=== PATIENT | male | born 1960 | race Caucasian/White ===

== ENCOUNTER 2020-02-05 10:18 | Emergency (ER) | payer OTHER ==
[2020-02-05 10:28] VITALS: BP 143/81; PULSE 62; RESP 18; TEMP 98.4
[2020-02-05] MEDS ORDERED: DIPH,PERTUS(ACELL)TETVAC-LF 0.5 ML VIAL IM ONE (10:37)
[2020-02-05] MEDS ORDERED: LIDOCAINE 1% INJ 10MG/ML (20 ML MDV) SQ ONE (10:37)
--- NOTE | 2020-02-05 10:58 | ED ---
Wound/Laceration HPI - General Chief Complaint: Wound/Laceration Stated Complaint: IHS/left hand laceration Time Seen by Provider: 02/05/20 10:30 Source: patient Mode of arrival: ambulatory Limitations: no limitations - History of Present Illness Initial Comments: Patient is a 59-year-old male presenting to the emergency Department with complaints of a laceration and injury to his left hand. Patient states he was attempting to move a large box of siding when it smashed down onto his left hand, thumb area. Patient does have a laceration to the area along with pain. Patient does not report number his last tetanus vaccine. He denies being on blood thinners. Bleeding is controlled at this time with a bandage. He states he does have pain in his hand with motion. No pain in the left wrist. He has no other complaints at this time. Upon arrival to the ER, his vital signs are stable. - Related Data Previous Rx's Medication Instructions Recorded Naproxen [Naprosyn] 500 mg PO Q12HR #24 tab 11/28/15 Cephalexin [Keflex] 500 mg PO BID 5 Days #10 cap 02/05/20 Allergies Allergy/AdvReac Type Severity Reaction Status Date / Time No Known Allergies Allergy Verified 02/05/20 10:20 Review of Systems ROS Statement: Those systems with pertinent positive or pertinent negative responses have been documented in the HPI. ROS Other: All systems not noted in ROS Statement are negative. Past Medical History Past Medical History: No Reported History History of Any Multi-Drug Resistant Organisms: None Reported Past Surgical History: No Surgical Hx Reported Past Psychological History: No Psychological Hx Reported Smoking Status: Current some day smoker Past Alcohol Use History: Occasional Past Drug Use History: None Reported General Exam - General Exam Comments Initial Comments: GENERAL: Well-appearing, well-nourished and in no acute distress. HEAD: Atraumatic, normocephalic. EYES: Pupils equal round and reactive to light, extraocular movements intact, sclera anicteric, conjunctiva are normal. ENT: Moist mucous membranes. NECK: Normal range of motion, supple without lymphadenopathy or JVD. LUNGS: Breath sounds clear to auscultation bilaterally and equal. No wheezes rales or rhonchi. HEART: Regular rate and rhythm without murmurs, rubs or gallops. ABDOMEN: Soft, nontender, normoactive bowel sounds. No guarding, no rebound. No masses appreciated. : Deferred EXTREMITIES: Patient has pain with palpation along the left thumb, base of the thumb. He has pain with opposition. There is a large laceration in the same area. No pitting or edema. No clubbing or cyanosis. NEUROLOGICAL: Normal speech, normal gait. PSYCH: Normal mood, normal affect. SKIN: Warm, Dry, normal turgor. Patient has an approximate 6 cm laceration to the palmar aspect of the left thumb. Bleeding is controlled at this time. Limitations: no limitations Course Vital Signs 02/05/20 10:25 Temperature 98.4 F Pulse Rate 62 Respiratory 18 Rate Blood Pressure 143/81 O2 Sat by Pulse 95 Oximetry Procedures - Laceration Laceration #1 Consent Obtained: verbal consent Indication: laceration Site: hand (Left hand, into first digit.) Size (cm): 6 Description: linear Depth: simple, single layer Anesthetic Used: lidocaine 1% Anesthesia Technique: local infiltration Amount (mls): 4 Pre-repair: irrigated extensively Type of Sutures: nylon Size of Sutures: 4-0 Number of Sutures: 10 Technique: simple, interrupted Patient Tolerated Procedure: well Medical Decision Making - Medical Decision Making Patient is a 59-year-old male presenting with a 6 cm laceration to the palmar aspect of the left hand, near the base of the thumb. Bleeding is controlled. The tetanus vaccine was updated today. X-rays of the left hand reveal a possible acute nondisplaced transversely oriented fracture of the distal first phalanx. Patient's wound was cleaned with 1 L of sterile water. He is also started on Keflex for possible open fracture. Patient's wound was closed with 10, 40 sutures. Patient tolerated procedure well. Patient's wound was dressed and covered with a bandage. He will continue with Keflex as outpatient. He will follow up with orthopedics. He is in agreement with this plan of care. He is stable for discharge at this time. Return parameters were discussed with t melody patient he verbalizes understanding. Case discussed with Dr. Marie. Disposition Clinical Impression: Laceration of left hand, Fracture of distal phalanx of left thumb, Contusion of left hand Disposition: HOME SELF-CARE Condition: Stable Instructions (If sedation given, give patient instructions): Care For Your Stitches (ED) Additional Instructions: Please return to the Emergency Department if symptoms worsen or any other concerns. Stitches need to be removed and 7-10 days. Take antibiotics as prescribed. Follow-up with orthopedics as discussed. Prescriptions: Cephalexin [Keflex] 500 mg PO BID 5 Days #10 cap Is patient prescribed a controlled substance at d/c from ED?: No Referrals: Jasiel Martin MD [Primary Care Provider] - 1-2 days Dangelo Scott MD [STAFF PHYSICIAN] - 1-2 days
--- NOTE | 2020-02-05 11:06 | XR ---
EXAMINATION TYPE: XR hand complete LT DATE OF EXAM: 02/05/2020 CLINICAL HISTORY: Left hand laceration at the base of the thumb. Left hand pain. TECHNIQUE: Frontal, lateral and oblique images of the left hand are obtained. COMPARISON: None. FINDINGS: Transversely oriented lucency through the distal diaphysis of the first distal phalanx may relate to a nondisplaced acute fracture however this could relate to external lucency of the nailbed as the patient does not describe pain and trauma dislocation. Soft tissue laceration is seen at the l ateral aspect of the distal first metacarpal without radiopaque foreign body.. Old fracture deformity is seen of the distal ulna and ulnar styloid process. The joint spaces in the left hand appear withi n normal limits. The overlying soft tissue appears unremarkable. IMPRESSION: 1. Soft tissue laceration of the left hand lateral to the first metacarpal without radiopaque foreign body. 2. Lucency through the distal first phalanx could relate to acute nondisplaced transversely oriented fracture or external lucency the nailbed as the patient does not describe injury or pain in this loca tion. Correlate with point tenderness.
[2020-02-05] MEDS ORDERED: CEPHALEXIN 500 MG CAP PO STA (11:10)
== END 2020-02-05 12:30 | disposition home or self-care (01) ==
LOC: EC 10:18
DX: S62.522B Displaced fracture of distal phalanx of left thumb, initial encounter for open fracture (principal); F17.200 Nicotine dependence, unspecified, uncomplicated; Z23 Encounter for immunization; W23.1XXA Caught, crushed, jammed, or pinched between stationary objects, initial encounter; Y92.69 Other specified industrial and construction area as the place of occurrence of the external cause; Y99.0 Civilian activity done for income or pay
CPT/HCPCS: 73130; 90715; 99283; 12002; 90471; J2001

== ENCOUNTER → 2022-06-13 | Outpatient (CLI) | payer OTHER ==
--- NOTE | 2022-06-13 13:56 | US ---
EXAMINATION TYPE: US carotid duplex BILAT DATE OF EXAM: 06/13/2022 COMPARISON: NONE CLINICAL HISTORY: R42 DIZZINESS. Dizziness EXAM MEASUREMENTS: RIGHT: Peak Systolic Velocity (PSV) cm/sec ----- Right CCA: 157 ----- Right ICA: 108 ----- Right ECA: 141 ICA/CCA ratio: 0.69 RIGHT: End Diastole cm/sec ----- Right CCA: 42.0 ----- Right ICA: 29.5 ----- Right ECA: 11.0 LEFT: Peak Systolic Velocity (PSV) cm/sec ----- Left CCA: 126 ----- Left ICA: 123 ----- Left ECA: 141 ICA/CCA ratio: 0.98 LEFT: End Diastole cm/sec ----- Left CCA: 26.4 ----- Left ICA: 31.5 ----- Left ECA: 10.3 VERTEBRALS (direction of flow): Right Vertebral: Antegrade Left Vertebral: Antegrade Rhythm: Normal Mild plaque bilateral bifurcations. Generally increased velocities bilaterally. IMPRESSION: 1. There may be some mild narrowing, approaching 50%, in the left internal carotid artery. 2. There is some mild elevation approximately 50% bilateral external carotid arteries. Criteria for Assigning % of Stenosis / Diameter reduction (Estimation based on the indirect measurements of the internal carotid artery velocities (ICA PSV). 1. Normal (no stenosis)=ICA PSV < 125 cm/s: ratio < 2.0: ICA EDV<40 cm/s. 2. Less than 50% stenosis=ICA PSV < 125 cm/s: ratio < 2.0: ICA EDV<40 cm/s. 3. 50 to 69% stenosis=ICA PSV of 125 to 230 cm/s: ration 2.0 ? 4.0: ICA EDV 40-100 cm/s. 4. Greater than 70% stenosis to near occlusion= ICA PSV > 230 cm/s: ratio > 4.0: ICA EDV > 100 cm/s. 5. Near occlusion= ICA PSV velocities may be low or undetectable: variable ratio and ICA EDV. 6. Total occlusion=unable to detect flow.
== END | disposition home or self-care (01) ==
LOC: RADUSWWP 13:15
PROVIDERS: ATTEND Internal Medicine
DX: I65.23 Occlusion and stenosis of bilateral carotid arteries (principal)
CPT/HCPCS: 93880

== ENCOUNTER → 2022-06-20 | Outpatient (CLI) | payer OTHER ==
--- NOTE | 2022-06-20 08:20 | CT ---
EXAMINATION TYPE: CT brain wo con DATE OF EXAM: 06/20/2022 HISTORY: Dizziness CT DLP: 1072.30 mGycm. Automated Exposure Control for Dose Reduction was Utilized. TECHNIQUE: CT scan of the head is performed without contrast. COMPARISON: None. FINDINGS: There is no acute intracranial hemorrhage or midline shift identified. There is mild-to-m oderate diffuse ventricular and sulcal prominence consistent with diffuse age-related cerebral atroph y. Mcgill-white matter differentiation is maintained. There is 1.5 cm mucous retention cyst or polyp in the medial aspect left maxillary sinus. The globes are intact bilaterally. No suspicious opacificati on of mastoid air cells. IMPRESSION: No acute intracranial hemorrhage or midline shift. There is mild to moderate diffuse ag e-related cerebral atrophy noted.
--- NOTE | 2022-06-20 08:38 | CTL ---
EXAMINATION TYPE: CT Low Dose Lung DATE OF EXAM ORDERED: 06/20/2022 HISTORY: jail tobacco use. Lung cancer screening CT DLP: 89.[address] CTDI: 2.60 mGy Automated exposure control for dose reduction was used. SCREENING VISIT: Baseline COMPARISON: None. TECHNIQUE: Low dose computed tomography scan was performed through the chest at 1 mm thick sections a nd reconstructed images in multiple planes at 1 mm and [address] DIAGNOSTIC QUALITY: Satisfactory FINDINGS: LUNG NODULES: None. LUNGS: COPD: Severity: Moderate Fibrosis: Severity: None Lymph nodes: No greater than 1 cm Other findings: Non- RIGHT PLEURAL SPACE: Effusion: None Calcification: None Thickening: None Pneumothorax: None LEFT PLEURAL SPACE: Effusion: None Calcification: None Thickening: None Pneumothorax: None HEART: Heart Size: Normal Coronary Calcification: Mild in the LAD Pericardial Effusion: None OTHER FINDINGS: Upper abdomen: Occasional scattered subcentimeter low dense lesion through the liver too small to fur ther characterize presumed benign Bony thorax: Mild to moderate multilevel spurring. Supraclavicular region: Somewhat small size thyroid Other: None IMPRESSION: No suspicious nodules. CT LUNG RAD AND CT CHEST RECOMMENDATION: Lung-Rad 1 Negative: Continue annual screening with LDCT in 12 months. S Modifier (other clinically significant findings): None
== END | disposition home or self-care (01) ==
LOC: RADCTMAIN 07:44
PROVIDERS: ATTEND Internal Medicine
DX: Z12.2 Encounter for screening for malignant neoplasm of respiratory organs (principal); G31.9 Degenerative disease of nervous system, unspecified; Z87.891 Personal history of nicotine dependence
CPT/HCPCS: 70450; 71271

== ENCOUNTER 2022-06-29 07:05 | Day surgery (SDC) | payer OTHER ==
[2022-06-27 09:25] VITALS: BMI 24.2
[~2022-06-29 07:05] MED LIST: LACTATED RINGERS 1,000 ML IV SCH
[2022-06-29 07:55] VITALS: TEMP 97.2
[2022-06-29] MEDS ORDERED: PROPOFOL 10 MG/ML 20 ML VIAL IV ONE (08:27)
--- NOTE | 2022-06-29 08:45 | P.PCN ---
Date of Procedure: 06/29/22 Procedure(s) Performed: BRIEF HISTORY: Patient is a 61-year-old pleasant white male scheduled for an elective colonoscopy as a part of screening for colorectal neoplasia. PROCEDURE PERFORMED: Colonoscopy. PREOPERATIVE DIAGNOSIS: Screening for colon cancer. IV sedation per Anesthesia. PROCEDURE: After informed consent was obtained, the patient, was brought into the endoscopy unit. IV sedation was administered by Anesthesia under continuous monitoring. Digital rectal examination was normal. Initially the Olympus CF-160 flexible video colonoscope was then inserted in the rectum, gradually advanced into the cecum without any difficulty. Careful examination was performed as the scope was gradually being withdrawn. Ileocecal valve and the appendiceal orifice were visualized and appeared normal. Prep was fair.. Mucosa of the cecum, ascending colon, transverse colon, descending colon, sigmoid colon, and rectum appeared normal. Retroflexion was performed in the rectum and no lesions were seen. The patient tolerated the procedure well. IMPRESSION: Normal-appearing colon from rectum to cecum with no evidence of colorectal neoplasia . RECOMMENDATIONS: Findings of this examination were discussed with the patient as well as his family. He was advised to have a repeat screening colonoscopy in 10 years..
[2022-06-29 08:54] VITALS: PULSE 51; RESP 16
[2022-06-29 09:10] VITALS: BP 110/77
== END 2022-06-29 09:34 | disposition home or self-care (01) ==
LOC: ORWHC2ENDO 07:05
PROVIDERS: ATTEND Internal Medicine Gastroenterology
DX: Z12.11 Encounter for screening for malignant neoplasm of colon (principal); F17.210 Nicotine dependence, cigarettes, uncomplicated; Z80.9 Family history of malignant neoplasm, unspecified; Z82.49 Family history of ischemic heart disease and other diseases of the circulatory system
CPT/HCPCS: 45378; J2704

== ENCOUNTER → 2022-11-22 | Outpatient (CLI) | payer OTHER ==
--- NOTE | 2022-11-22 08:30 | US ---
EXAMINATION TYPE: US liver DATE OF EXAM: 11/22/2022 COMPARISON: CT 06/20/22. CLINICAL HISTORY: R74.01 ELEVATED TRANSAMINASE LEVEL. Elevated transaminase level TECHNIQUE: Multiple sonographic images of the right upper quadrant are obtained. FINDINGS: EXAM MEASUREMENTS: Liver Length: 12.8 cm Gallbladder Wall: 0.16 cm CBD: 0.35 cm Right Kidney: 9.5 x 4.6 x 4.2 cm MARINE PIPEFITTER NOTES: Limited due to gas. Pancreas: Limited. Tail was not well seen. Liver: Two cystic areas seen within the right lobe. #1: 1.8 x 1.6 x 0.8 cm. #2: 1.5 x 1.5 x 1.0 cm. Gallbladder: wnl Evidence for sonographic Motta's sign: No CBD: Portions seen appear wnl Right Kidney: No hydronephrosis or masses seen. Slightly limited visibility of lower pole. Visualized portion of pancreas unremarkable. IVC seen near the hepatic dome. Visualized liver shows n o biliary dilatation. Gallbladder shows no intraluminal gallstones. No right-sided hydronephrosis. Te chnologist marked a 1.5 cm thin-walled cyst in the right hepatic lobe somewhat poorly defined and sli ghtly larger 1.8 cm thin-walled cyst in the right hepatic lobe. IMPRESSION: No worrisome solid intrahepatic mass or biliary dilatation.
== END | disposition home or self-care (01) ==
LOC: RADUSWWP 06:40
PROVIDERS: ATTEND Family Medicine
DX: R74.01 Elevation of levels of liver transaminase levels (principal)
CPT/HCPCS: 76705

== ENCOUNTER → 2024-03-01 | Outpatient (CLI) | payer MEDICARE ==
[2024-03-01 17:57] LABS: Chol/HDL Ratio 3.42 Ratio; LDL Cholesterol,Calculated 70.2 mg/dL (0.0-131.0)
[2024-03-01 17:58] LABS: ALT 38 U/L (10-49); AST 30 U/L (14-35)
== END | disposition home or self-care (01) ==
LOC: LABWHC1 10:30
PROVIDERS: ATTEND Internal Medicine Cardiovascular Disease
DX: E78.2 Mixed hyperlipidemia (principal)
CPT/HCPCS: 36415; 80061; 84450; 84460

== ENCOUNTER → 2024-12-10 | Outpatient (CLI) | payer MEDICARE ==
[2024-12-10 19:24] LABS: Thyroid Peroxidase Antibodies <9.0 U/mL (0.0-33.0)
[2024-12-10 19:25] LABS: T4, Free (Free Thyroxine) 1.07 ng/dL (0.80-1.80)
== END | disposition home or self-care (01) ==
LOC: LABWHC1 13:27
PROVIDERS: ATTEND Family Medicine
DX: R79.89 Other specified abnormal findings of blood chemistry (principal)
CPT/HCPCS: 36415; 84432; 84439; 84443; 86376

== ENCOUNTER → 2024-12-19 | Outpatient (CLI) | payer MEDICARE ==
--- NOTE | 2024-12-19 08:08 | CTL ---
EXAMINATION TYPE: CT Low Dose Lung DATE OF EXAM ORDERED: 12/19/2024 COMPARISON: CT Low Dose Lung 06/20/2022 CLINICAL INDICATION: Male, 63 years old with history of F17.210 nicotine dependence; PHH, lung CA scr eening, nicotine dependent, Lung cancer screening, History of Smoking/tobacco use. TECHNIQUE: Low dose computed tomography scan was performed through the chest at 1 mm thick sections a nd reconstructed images in multiple planes at 1 mm and [address] DLP: 96.[address] CTDI: 2.4 mGy Automated exposure control for dose reduction was used. CT DIAGNOSTIC QUALITY: Satisfactory FINDINGS: Nodules: No clinically significant pulmonary nodules. LUNGS: COPD: Severity: Moderate Fibrosis: Severity: None Lymph nodes: Stable prominent precarinal 9 mm short axis lymph node. Other findings: None RIGHT PLEURAL SPACE: Effusion: None Calcification: None Thickening: None Pneumothorax: None LEFT PLEURAL SPACE: Effusion: None Calcification: None Thickening: None Pneumothorax: None HEART: Heart Size: Normal Coronary Calcification: Mild in the LAD. Pericardial Effusion: None OTHER FINDINGS: Upper abdomen: Occasional stable scattered subcentimeter low dense lesion through the liver too small to further characterize presumed benign. Bony thorax: Mild multilevel spurring. Supraclavicular region: Somewhat small size thyroid redemonstrated. Other: Mild bilateral gynecomastia. IMPRESSION: 1. No clinically significant pulmonary nodules. 2. Moderate COPD changes. CT LUNG RAD AND CT CHEST RECOMMENDATION: Lung-Rad 1 Negative: Continue annual screening with LDCT in 12 months. S Modifier (other clinically significant findings): None [facility], , 12/19/2024 8:06 AM
== END | disposition home or self-care (01) ==
LOC: RADCTMAIN 07:42
PROVIDERS: ATTEND Family Medicine
DX: Z12.2 Encounter for screening for malignant neoplasm of respiratory organs (principal); J44.9 Chronic obstructive pulmonary disease, unspecified; F17.210 Nicotine dependence, cigarettes, uncomplicated
CPT/HCPCS: 71271

== ENCOUNTER → 2025-03-01 | Outpatient (CLI) | payer MEDICARE ==
[2025-03-01 13:45] LABS: ALT 35 U/L (10-49); Chol/HDL Ratio 3.59 Ratio; LDL Cholesterol,Calculated 83.8 mg/dL (0.0-131.0)
[2025-03-01 13:46] LABS: AST 30 U/L (14-35)
== END | disposition home or self-care (01) ==
LOC: LABWHC1 08:17
PROVIDERS: ATTEND Internal Medicine Cardiovascular Disease
DX: E78.2 Mixed hyperlipidemia (principal)
CPT/HCPCS: 36415; 80061; 84450; 84460